=== PATIENT | male | born 1990 | race African-American/Black ===

== ENCOUNTER 2018-08-11 10:03 | Emergency (ER) | payer MEDICAID ==
[~2018-08-11] VITALS: Ht 162.6 cm; Wt 59.0 kg
[~2018-08-11 10:03] MED LIST: OXYC5CAP12 PO
[2018-08-11 10:13] VITALS: BP 131/77
== END 2018-08-11 11:31 | disposition home or self-care (01) ==
LOC: ER 10:03
DX: J02.0 Streptococcal pharyngitis (principal); Z72.0 Tobacco use
CPT/HCPCS: 99283

== ENCOUNTER 2022-03-27 21:28 | Emergency (ER) | payer MEDICAID ==
[~2022-03-27] VITALS: Ht 162.6 cm; Wt 64.2 kg
[~2022-03-27 21:28] MED LIST changes: -OXYC5CAP12 PO; +OXYC5CAP19 PO
[2022-03-27] MEDS ORDERED: CEPH500T MT (23:24)
[2022-03-27] MEDS ORDERED: IBUP-2029 MT (23:24)
[2022-03-27] MEDS ORDERED: IBUPROFEN 600MG TABLET PO ONE (23:30)
[2022-03-27] MEDS ORDERED: CEPHALEXIN 250MG CAPSULE PO ONE (23:30)
[2022-03-27 23:46] VITALS: BP 149/95
== END 2022-03-28 | disposition home or self-care (01) ==
LOC: ER 21:28
DX: L03.011 Cellulitis of right finger (principal); R03.0 Elevated blood-pressure reading, without diagnosis of hypertension
CPT/HCPCS: 99283

== ENCOUNTER 2024-07-15 19:25 | Emergency (ER) | payer MEDICAID ==
[~2024-07-15] VITALS: Ht 167.6 cm; Wt 61.0 kg
[~2024-07-15 19:25] MED LIST changes: +CEPH500T MT; +IBUP-2029 MT; -OXYC5CAP19 PO; +OXYC5CAP22 PO
[2024-07-15 19:30] VITALS: O2SAT 98
[2024-07-15 20:39] VITALS: BP 129/93; PULSE 73; RESP 18; TEMP 98.3; O2SAT 99
== END 2024-07-16 01:17 | disposition left against medical advice (07) ==
LOC: ER 19:27
DX: M79.602 Pain in left arm (principal)
CPT/HCPCS: 73090; 99283